=== PATIENT | male | born 1995 | race Caucasian/White ===

== ENCOUNTER → 2024-06-16 15:21 | Outpatient (CLI) | payer OTHER, SELFPAY ==
--- NOTE | 2024-06-16 15:24 | DI.MRI.S_ITS ---
PROCEDURE: MR LUMBAR SPINE WO CON INDICATIONS: URINARY DRIBBLING AND PARESTHESIAS BILAT LEGS TECHNIQUE: Noncontrast sagittal T1 spin echo and T2 fast echo, sagittal STIR, and T2 fast spin echo through the lumbar spine. In cases with scoliosis, additional coronal T2 fast spin echo may be performed. COMPARISON: [facility], MR, MR THORACIC SPINE WO CON, 06/16/2024, 15:47. FINDINGS: Image quality: Diagnostic, with note made of motion artifact. Alignment and Curvature: There is normal bony alignment. Bone Marrow: Marrow is of normal overall signal. No acute vertebral body compression fractures. Spinal Cord: Conus medullaris terminates at the L1 level. Visualized cord demonstrates normal signal and size. Paraspinous Soft Tissues: No paravertebral masses. T12-L1: Normal appearance. L1-L2: Normal appearance. L2-L3: Normal appearance. L3-L4: The disc height and disk signal are well-preserved. Mild generalized disc bulge is seen. There is a mild central disc protrusion. Mild bilateral neural foraminal narrowing is seen. No central canal narrowing is seen. L4-L5: Mild loss of disc height is seen. Loss of disc signal is seen. Moderate disc bulge is seen, which is eccentric to the right, with a right foraminal disc protrusion, as on series 14, image 25. There is moderate left-sided and moderate to severe right-sided neural foraminal narrowing. There is a degree of compression seen upon the exiting right L4 nerve root. Mild central canal narrowing is seen. L5-S1: Lkqk-uc-[id number] loss of disc height and disc signal can be seen. Mild to moderate disc bulge is seen, with a central/left disc extrusion, with inferior migration of the disc material, as on series 7, image 9 and on series 14, image 31. Lksa-xg-ibvoanms bilateral neural foraminal narrowing is seen. Mild to moderate central canal narrowing is seen. IMPRESSION: Lower lumbar spine degenerative changes are seen, including a central/left disc extrusion at L5-S1. Dictated by: Shun Perez M.D. on 06/16/2024 at 16:26 Approved by: Shun Perez M.D. on 06/16/2024 at 16:28
--- NOTE | 2024-06-16 15:25 | DI.MRI.S_ITS ---
PROCEDURE: MR THORACIC SPINE WO CON INDICATIONS: URINARY DRIBBLING AND PARESTHESIAS BILAT LEGS TECHNIQUE: Noncontrast sagittal T1 spine echo and T2 fast spin echo, sagittal STIR, and T2 fast spin echo through the thoracic spine. COMPARISON: [facility], , MR LUMBAR SPINE WO CON, 06/16/2024, 15:47. FINDINGS: Image quality: Diagnostic, with note made of motion artifact. Alignment and Curvature: There is normal bony alignment. Bone Marrow: Marrow is of normal overall signal. No acute vertebral body compression fractures. Spinal Cord: Visualized spinal cord is normal in size and signal. Paraspinous Soft Tissues: No paravertebral masses. Miscellaneous: At the T4-T5 level, there is a minimal central disc osteophyte protrusion. No significant neural foraminal or central canal narrowing can be seen. At the T6-T7 level, there is a mild central/left disc osteophyte protrusion. Minimal central canal narrowing is seen, with minimal mass effect upon the ventral spinal cord. No neural foraminal narrowing is seen. At the T7-T8 level, there is a mild central/left disc osteophyte protrusion, as on series 10, image 29. [id number]-[id number] central canal narrowing is seen, with mild to moderate mass effect upon the ventral spinal cord. No neural foraminal narrowing is seen. IMPRESSION: Midthoracic spine degenerative changes are seen, which are worst at T7-T8. Dictated by: Shun Perez M.D. on 06/16/2024 at 16:24 Approved by: Shun Perez M.D. on 06/16/2024 at 16:26
== END ==
PROVIDERS: Referring Provider Nurse Practitioner Family; Visit Provider Nurse Practitioner Family
DX: M47.814 Spondylosis without myelopathy or radiculopathy, thoracic region (principal); M47.816 Spondylosis without myelopathy or radiculopathy, lumbar region; M51.27 Other intervertebral disc displacement, lumbosacral region
CPT/HCPCS: 72146; 72148

== ENCOUNTER → 2024-08-14 09:08 | Outpatient (CLI) | payer OTHER, SELFPAY ==
[2024-08-14 09:42] LABS: Appearance Urine UA CLEAR; Bilirubin Urine UA NEGATIVE (NEGATIVE); Color Urine UA YELLOW; Glucose Urine UA NEGATIVE (Negative); Ketones Urine UA NEGATIVE (NEGATIVE); Leukocyte Esterase Urine UA NEGATIVE (NEGATIVE); Nitrite Urine UA NEGATIVE (Negative); Occult Blood Urine UA NEGATIVE (Negative); Protein Urine UA NEGATIVE (Negative); Specific Gravity Urine UA <=1.005 (1.000-1.035); Urobilinogen Urine UA 0.2 E.U./dL (0.2)
[2024-08-14 09:43] LABS: Urine Volume 10mL (spun)
[2024-08-14 09:44] LABS: Bacteria Urine None Seen; RBC Urine None Seen (0-5/HPF); Squamous Epithelial Cell Urine None Seen (0-5/HPF); WBC Urine None Seen (0-5/HPF)
[2024-08-14 10:38] LABS: Alanine Aminotransferase 49 IU/L (<50); Albumin 4.8 g/dL (3.5-5.0); Albumin Globulin Ratio 1.6 (1.0-2.8); Alkaline Phosphatase 52 U/L (38-126); Aspartate Aminotransferase 47 IU/L (17-59); BUN Creatinine Ratio 12.4 (6-22); Blood Urea Nitrogen 21 mg/dL (9-20); Calcium 10.1 mg/dL (8.4-10.2); Carbon Dioxide 28 mmol/L (22-32); Chloride 101 mmol/L (98-107); Estimated Glomerular Filt Rate 56 mL/min (>60); Glucose 90 mg/dL (70-100); HEMOLYSIS < 15 (0-50); Potassium 4.5 mmol/L (3.4-5.1); Sodium 136 mmol/L (137-145); Total Protein 7.8 g/dL (6.3-8.2)
== END ==
LOC: LAB 09:10
PROVIDERS: Referring Provider Chiropractor; Visit Provider Chiropractor
DX: N18.9 Chronic kidney disease, unspecified (principal)
CPT/HCPCS: 36415; 80053; 81001